=== PATIENT | female | born 2000 | race Two or more races ===

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

== ENCOUNTER 2018-08-25 11:50 | Observation (INO) | payer BC, MEDICAID ==
[2018-08-25 12:34] LABS: Eosinophils # (auto) 0.1 uL; Hemoglobin 11.1 g/dL (12.2-16.2); Lymphocytes # (auto) 1.8 uL; Monocytes # (auto) 0.5 uL
[2018-08-25 12:36] LABS: Basophils # (auto) 0 uL; Basophils % (auto) 0.5 % (0.0-2.0); Eosinophils % (auto) 1.8 % (0.0-7.0); Hematocrit 34.9 % (36.0-46.0); Lymphocytes % (auto) 23.4 % (10.0-50.0); Mean Corpuscular Hemoglobin 23.8 pg (28.0-32.0); Mean Corpuscular Hgb Conc. 31.7 g/dL (32.0-36.0); Mean Corpuscular Volume 74.9 fL (80.0-100.0); Neutrophils # (auto) 5.3 uL; Neutrophils % (auto) 68.3 % (37.0-80.0); Nucleated Red Blood Cells % 0.1 %; Platelet Count (auto) 291 10^3/uL (140-450); Red Blood Cells 4.66 10^6/uL (4.0-5.20); White Blood Cell 7.7 10^3/uL (4.4-10.8)
[2018-08-25 12:45] LABS: Amphetamine Screen, Urine NEGATIVE (NEGATIVE); Barbiturate Scree,Urine NEGATIVE (NEGATIVE); Benzodiazephine Screen, Urine NEGATIVE (NEGATIVE); Cannabinoid Screen, Urine POSITIVE (NEGATIVE); Cocaine Screen, Urine NEGATIVE (NEGATIVE); Opiate Scree,Urine NEGATIVE (NEGATIVE); Phencyclidine Screen, Urine NEGATIVE (NEGATIVE)
[2018-08-26 06:09] LABS: RPR Non Reactive (Non Reactive)
[2018-08-29] MEDS ORDERED: FERR-7 PO (13:37)
== END 2018-08-25 14:45 | disposition home or self-care (01) | DRG 566 ==
LOC: LDRP 11:50
PROVIDERS: ADMIT Obstetrics & Gynecology; ATTEND Obstetrics & Gynecology
DX: O26.893 Other specified pregnancy related conditions, third trimester (principal); Z3A.37 37 weeks gestation of pregnancy
CPT/HCPCS: 36415; 59025; 76805; 76818; 80307; 81002; 83036; 85025; 86592; G0378

== ENCOUNTER 2018-08-27 08:40 | Observation (INO) | payer MEDICAID ==
[2018-08-27] MEDS ORDERED: PREN-96 PO (09:57)
[2018-08-29] MEDS ORDERED: FERR-7 PO (13:37)
== END 2018-08-27 09:30 | disposition home or self-care (01) | DRG 566 ==
LOC: LDRP 08:40
PROVIDERS: ADMIT Specialist; ATTEND Specialist
DX: O26.893 Other specified pregnancy related conditions, third trimester (principal); F12.90 Cannabis use, unspecified, uncomplicated; O99.343 Other mental disorders complicating pregnancy, third trimester; Z3A.38 38 weeks gestation of pregnancy; Z87.891 Personal history of nicotine dependence
CPT/HCPCS: 59025; 81002; G0378